=== PATIENT | male | born 1995 | race Caucasian/White ===

== ENCOUNTER 2017-10-10 14:00 | Inpatient (IN) | payer SELFPAY ==
[2017-10-10] MEDS: IV RINGERS,LACTATED 1000ML 1,000 ML IV (13:30)
[~2017-10-10 14:00] MED LIST: BUPIVACAINE MPF 0.5% 30 ML VIAL.
[2017-10-10] MEDS ORDERED: LIDOCAINE 1% PF 5 ML VIAL. (14:33)
[2017-10-10] MEDS ORDERED: FAMOTIDINE 20 MG/2 ML VIAL (14:33)
[2017-10-10] MEDS ORDERED: ONDANSETRON PF 4 MG/2 ML VIAL. (14:33)
[2017-10-10] MEDS ORDERED: DEXAMETHASONE SOD PHOS 20 MG/5 ML VIAL. (14:33)
[2017-10-10] MEDS ORDERED: PROPOFOL 20 ML IV (14:33)
[2017-10-10] MEDS ORDERED: fentaNYL PF VIAL 100 MCG/2 ML VIAL (14:35)
[2017-10-10] MEDS ORDERED: MIDAZOLAM HCL/PF 2 MG/2 ML VIAL. (14:35)
[2017-10-10] MEDS ORDERED: ONDANSETRON PF 4 MG/2 ML VIAL. IV ×2 (15:15→17:00)
[2017-10-10] MEDS ORDERED: PROCHLORPERAZINE 10 MG/2 ML VIAL. IV (15:15)
[2017-10-10] MEDS ORDERED: HYDROmorphone 2 MG/ML VIAL IV (15:15)
[2017-10-10] MEDS ORDERED: MORPHINE SULFATE 4 MG/ML DISP.SYRIN. IV (15:15)
[2017-10-10] MEDS ORDERED: fentaNYL PF VIAL 100 MCG/2 ML VIAL IV ×3 (15:15→17:00)
[2017-10-10] MEDS: LIDOCAINE 1% PF 2 ML VIAL. ID (15:51)
[2017-10-10] MEDS ORDERED: SEVOFLURANE 61 TO 120 MINUTES. IH (16:46)
[2017-10-10] MEDS ORDERED: ACETAMINOPHEN 500 MG TABLET PO (17:00)
[2017-10-10] MEDS ORDERED: ONDANSETRON ODT 4 MG TAB.RAPDIS. PO (17:00)
[2017-10-10] MEDS: oxyCODONE/APAP 5/325 1 TAB TABLET PO (18:27)
[2017-10-10] MEDS: NICOTINE 21MG PATCH. TD (21:15)
[2017-10-11] MEDS: NICOTINE 21MG PATCH. TD (09:00)
[2017-10-11] MEDS: FLUoxetine HCL 10 MG CAPSULE PO (09:16)
[2017-10-11] MEDS: oxyCODONE/APAP 5/325 1 TAB TABLET PO (09:20)
[2017-10-11] MEDS: SMZ/TMP 800/160MG TABLET. PO (11:41)
[2017-10-11] MEDS: DOCUSATE SODIUM 100 MG CAPSULE. PO (11:41)
[2017-10-11] MEDS: oxyCODONE/APAP 10/325 1 TAB TABLET PO (13:27)
== END 2017-10-11 15:35 | disposition home or self-care (01) | DRG 712 ==
LOC: 4 NORTH 14:00
PROC: 0VSB0ZZ Reposition Left Testis, Open Approach (ICD-10-PCS; principal; 2017-10-10 15:34)
PROC: 0VT90ZZ Resection of Right Testis, Open Approach (ICD-10-PCS; 2017-10-10 15:34)
DX: N44.00 Torsion of testis, unspecified (principal); N43.3 Hydrocele, unspecified; N50.89 Other specified disorders of the male genital organs
CPT/HCPCS: J0690; J1100; J2250; J2405; J2704; J3010; J3490; J7120; S0028